=== PATIENT | female | born 1955 | race Caucasian/White ===

== ENCOUNTER → 2017-06-22 | Outpatient (CLI) | payer BC ==
[2017-06-22 09:28] LABS: Appearance,Urine Clear (Clear); Bilirubin,Urine Negative (Negative); Blood,Urine Negative (Negative); Color,Urine Light Yellow; Glucose,Urine (UA) Negative (Negative); Ketones,Urine Negative (Negative); Leukocyte Esterase,Urine Negative (Negative); Nitrite,Urine Negative (Negative); PH, Urine 6.5 (5.0-8.0); Protein,Urine Negative (Negative); Specific Gravity,Urine 1.012 (1.001-1.035); Urobilinogen,Urine <2.0 mg/dL (<2.0)
[2017-06-22 09:29] LABS: HCT 41.7 % (34.0-46.0); HGB 14.3 gm/dL (11.4-16.0); MCH 31.2 pg (25.0-35.0); MCHC 34.2 g/dL (31.0-37.0); MCV 91.2 fL (80.0-100.0); Mean Platelet Volume 8.6; Platelet Count 320 k/uL (150-450); RBC 4.57 m/uL (3.80-5.40); RDW 13.1 % (11.5-15.5); WBC 10.4 k/uL (3.8-10.6)
[2017-06-22 10:14] LABS: ALT 23 U/L (9-52); AST 30 U/L (14-36); Albumin 4.6 g/dL (3.5-5.0); Alkaline Phosphatase 76 U/L (38-126); Anion Gap 9 mmol/L; Blood Urea Nitrogen 13 mg/dL (7-17); Calcium 9.8 mg/dL (8.4-10.2); Carbon Dioxide 27 mmol/L (22-30); Chloride 108 mmol/L (98-107); Cholesterol 234 mg/dL (<200); Glucose 92 mg/dL (74-99); HDL Cholesterol 43 mg/dL (40-60); LDL Cholesterol,Calculated 152 mg/dL (0-99); Potassium 4.6 mmol/L (3.5-5.1); Sodium 144 mmol/L (137-145); Total Bilirubin 1.3 mg/dL (0.2-1.3); Total Protein 7.7 g/dL (6.3-8.2); Triglycerides 193 mg/dL (<150)
== END | disposition home or self-care (01) ==
LOC: LABWHC1 08:50
PROVIDERS: ATTEND Family Medicine
DX: Z00.00 Encounter for general adult medical examination without abnormal findings (principal); Z13.9 Encounter for screening, unspecified
CPT/HCPCS: 36415; 80053; 80061; 81003; 85027; 86803

== ENCOUNTER 2020-05-07 12:54 | Emergency (ER) | payer BC, OTHER ==
[2020-05-07] MEDS ORDERED: SODIUM CHLORIDE 0.9% 1,000 ML IV STA (13:17)
[2020-05-07] MEDS ORDERED: SODIUM CHLORIDE 0.9% 500 ML 500 ML IV STA (13:17)
--- NOTE | 2020-05-07 13:35 | ED ---
Abdominal Pain HPI - General Chief Complaint: Abdominal Pain Stated Complaint: Abd Pain Time Seen by Provider: 05/07/20 13:03 Source: patient, RN notes reviewed Mode of arrival: ambulatory Limitations: no limitations - History of Present Illness Initial Comments: This is a 64-year-old female presents emergency Department with chief complaint of upper abdominal pain. Patient states it has been on and off. Patient states she ate some breakfast sausage this morning which made symptoms worse. Patient saw PCP today who sent emergency from for rule out cholecystitis. Patient denies any fevers or chills no nausea vomiting diarrhea constipation she's had a prior appendectomy. Patient states the pain when it was present radiate up to her right shoulder she has no chest pain. - Related Data Home Medications Medication Instructions Recorded Confirmed Albuterol Inhaler [Ventolin Hfa 2 puff INHALATION RT-QID PRN 05/07/20 05/07/20 Inhaler] Previous Rx's Medication Instructions Recorded Omeprazole [PriLOSEC] 40 mg PO DAILY #30 cap 05/07/20 Allergies Allergy/AdvReac Type Severity Reaction Status Date / Time amoxicillin [From Augmentin] Allergy Unknown Verified 05/07/20 13:31 Childhood clavulanic acid Allergy Unknown Verified 05/07/20 13:31 [From Augmentin] Childhood Review of Systems ROS Statement: Those systems with pertinent positive or pertinent negative responses have been documented in the HPI. ROS Other: All systems not noted in ROS Statement are negative. Past Medical History Past Medical History: Asthma History of Any Multi-Drug Resistant Organisms: None Reported Past Surgical History: Appendectomy Past Psychological History: No Psychological Hx Reported Smoking Status: Current every day smoker Past Alcohol Use History: Occasional Past Drug Use History: None Reported General Exam Limitations: no limitations General appearance: alert, in no apparent distress Head exam: Present: atraumatic, normocephalic, normal inspection Eye exam: Present: normal appearance, PERRL, EOMI. Absent: scleral icterus, conjunctival injection, periorbital swelling Respiratory exam: Present: normal lung sounds bilaterally. Absent: respiratory distress, wheezes, rales, rhonchi, stridor Cardiovascular Exam: Present: regular rate, normal rhythm, normal heart sounds. Absent: systolic murmur, diastolic murmur, rubs, gallop, clicks GI/Abdominal exam: Present: soft, tenderness (Mild right upper), normal bowel sounds. Absent: distended, guarding, rebound, rigid Back exam: Absent: CVA tenderness (R), CVA tenderness (L) Neurological exam: Present: alert, oriented X3 Skin exam: Present: warm, dry, intact, normal color. Absent: rash Course Vital Signs 05/07/20 05/07/20 05/07/20 12:55 14:00 15:00 Temperature 97.8 F Pulse Rate 79 89 87 Respiratory 18 20 18 Rate Blood Pressure 154/92 141/70 154/77 O2 Sat by Pulse 98 99 97 Oximetry Medical Decision Making - Medical Decision Making 64 present for abdominal pain WAS UNREMARKABLE CT WAS ORDERED AT THIS TIME WHICH SHOWS THIN OUT AREA OF THE DO WANT NO CONCERN FOR ULCERATION. THERE IS NO EVIDENCE OF FREE AIR. LABWORK REVIEWED AND UNREMARKABLE. PATIENT WAS GIVEN PROTONIX WE DISCHARGED ON OMEPRAZOLE SHE STATES SHE HAS DAILY HEARTBURN. PATIENT WILL FOLLOW-UP WITH SURGERY AND GI FOR EGD AND POSSIBLE HIDA SCAN. - Lab Data Result diagrams: 05/07/20 13:23 05/07/20 13:23 Lab Results 05/07/20 05/07/20 05/07/20 Range/Units 13:23 13:23 13:23 WBC 11.7 H (3.8-10.6) k/uL RBC 4.67 (3.80-5.40) m/uL Hgb 14.0 (11.4-16.0) gm/dL Hct 42.4 (34.0-46.0) % MCV 90.8 (80.0-100.0) fL MCH 29.9 (25.0-35.0) pg MCHC 32.9 (31.0-37.0) g/dL RDW 13.4 (11.5-15.5) % Plt Count 346 (150-450) k/uL MPV 9.5 Neutrophils % 54 % Lymphocytes % 32 % Monocytes % 7 % Eosinophils % 4 % Basophils % 1 % Neutrophils # 6.3 (1.3-7.7) k/uL Lymphocytes # 3.8 (1.0-4.8) k/uL Monocytes # 0.8 (0-1.0) k/uL Eosinophils # 0.5 (0-0.7) k/uL Basophils # 0.1 (0-0.2) k/uL PT 9.9 (9.0-12.0) sec INR 0.9 (<1.2) APTT 27.5 (22.0-30.0) sec Sodium (137-145) mmol/L Potassium (3.5-5.1) mmol/L Chloride (98-107) mmol/L Carbon Dioxide (22-30) mmol/L Anion Gap mmol/L BUN (7-17) mg/dL Creatinine (0.52-1.04) mg/dL Est GFR (CKD-EPI)AfAm (>60 ml/min/1.73 sqM) Est GFR (CKD-EPI)NonAf (>60 ml/min/1.73 sqM) Glucose (74-99) mg/dL Plasma Lactic Acid Santiago (0.7-2.0) mmol/L Calcium (8.4-10.2) mg/dL Total Bilirubin (0.2-1.3) mg/dL AST (14-36) U/L ALT (4-34) U/L Alkaline Phosphatase (38-126) U/L Total Protein (6.3-8.2) g/dL Albumin (3.5-5.0) g/dL Amylase (30-110) U/L Lipase (23-300) U/L Urine Color Light Yellow Urine Appearance Clear (Clear) Urine pH 5.5 (5.0-8.0) Ur Specific [place] 1.007 (1.001-1.035) Urine Protein Negative (Negative) Urine Glucose (UA) Negative (Negative) Urine Ketones Negative (Negative) Urine Blood Negative (Negative) Urine Nitrite Negative (Negative) Urine Bilirubin Negative (Negative) Urine Urobilinogen <2.0 (<2.0) mg/dL Ur Leukocyte Esterase Negative (Negative) 05/07/20 05/07/20 Range/Units 13:23 13:23 WBC (3.8-10.6) k/uL RBC (3.80-5.40) m/uL Hgb (11.4-16.0) gm/dL Hct (34.0-46.0) % MCV (80.0-100.0) fL MCH (25.0-35.0) pg MCHC (31.0-37.0) g/dL RDW (11.5-15.5) % Plt Count (150-450) k/uL MPV Neutrophils % % Lymphocytes % % Monocytes % % Eosinophils % % Basophils % % Neutrophils # (1.3-7.7) k/uL Lymphocytes # (1.0-4.8) k/uL Monocytes # (0-1.0) k/uL Eosinophils # (0-0.7) k/uL Basophils # (0-0.2) k/uL PT (9.0-12.0) sec INR (<1.2) APTT (22.0-30.0) sec Sodium 139 (137-145) mmol/L Potassium 4.0 (3.5-5.1) mmol/L Chloride 102 (98-107) mmol/L Carbon Dioxide 26 (22-30) mmol/L Anion Gap 11 mmol/L BUN 9 (7-17) mg/dL Creatinine 0.53 (0.52-1.04) mg/dL Est GFR (CKD-EPI)AfAm >90 (>60 ml/min/1.73 sqM) Est GFR (CKD-EPI)NonAf >90 (>60 ml/min/1.73 sqM) Glucose 88 (74-99) mg/dL Plasma Lactic Acid Santiago 0.9 (0.7-2.0) mmol/L Calcium 9.9 (8.4-10.2) mg/dL Total Bilirubin 1.2 (0.2-1.3) mg/dL AST 28 (14-36) U/L ALT 15 (4-34) U/L Alkaline Phosphatase 85 (38-126) U/L Total Protein 8.2 (6.3-8.2) g/dL Albumin 4.7 (3.5-5.0) g/dL Amylase 35 (30-110) U/L Lipase 55 (23-300) U/L Urine Color Urine Appearance (Clear) Urine pH (5.0-8.0) Ur Specific [place] (1.001-1.035) Urine Protein (Negative) Urine Glucose (UA) (Negative) Urine Ketones (Negative) Urine Blood (Negative) Urine Nitrite (Negative) Urine Bilirubin (Negative) Urine Urobilinogen (<2.0) mg/dL Ur Leukocyte Esterase (Negative) Disposition Clinical Impression: Abdominal pain, Duodenal ulcer Disposition: HOME SELF-CARE Condition: Stable Instructions (If sedation given, give patient instructions): Peptic Ulcer (ED), Diet for Stomach Ulcers and Gastritis (ED) Additional Instructions: Please return to the Emergency Department if symptoms worsen or any other concerns. Prescriptions: Omeprazole [PriLOSEC] 40 mg PO DAILY #30 cap Is patient prescribed a controlled substance at d/c from ED?: No Referrals: Vinh Webber MD [Primary Care Provider] - 1-2 days Graciela Pandey MD [STAFF PHYSICIAN] - 1-2 days Fletcher Hernandez MD [STAFF PHYSICIAN] - 1-2 days Time of Disposition: 15:29
[2020-05-07 14:06] LABS: Appearance,Urine Clear (Clear); Basophils # (A) 0.1 k/uL (0-0.2); Basophils % (A) 1 %; Bilirubin,Urine Negative (Negative); Blood,Urine Negative (Negative); Color,Urine Light Yellow; Eosinophils # (A) 0.5 k/uL (0-0.7); Eosinophils % (A) 4 %; Glucose,Urine (UA) Negative (Negative); HCT 42.4 % (34.0-46.0); Ketones,Urine Negative (Negative); Leukocyte Esterase,Urine Negative (Negative); Lymphocytes # (A) 3.8 k/uL (1.0-4.8); Lymphocytes % (A) 32 %; MCH 29.9 pg (25.0-35.0); MCHC 32.9 g/dL (31.0-37.0); MCV 90.8 fL (80.0-100.0); Mean Platelet Volume 9.5; Monocytes # (A) 0.8 k/uL (0-1.0); Monocytes % (A) 7 %; Neutrophils # (A) 6.3 k/uL (1.3-7.7); Neutrophils % (A) 54 %; Nitrite,Urine Negative (Negative); PH, Urine 5.5 (5.0-8.0); Platelet Count 346 k/uL (150-450); Protein,Urine Negative (Negative); RBC 4.67 m/uL (3.80-5.40); RDW 13.4 % (11.5-15.5); Specific Gravity,Urine 1.007 (1.001-1.035); Urobilinogen,Urine <2.0 mg/dL (<2.0); WBC 11.7 k/uL (3.8-10.6)
[2020-05-07 14:11] LABS: ALT 15 U/L (4-34); AST 28 U/L (14-36); African American GFR (CKD) >90 (>60 ml/min/1.73 sqM); Albumin 4.7 g/dL (3.5-5.0); Alkaline Phosphatase 85 U/L (38-126); Amylase 35 U/L (30-110); Anion Gap 11 mmol/L; Blood Urea Nitrogen 9 mg/dL (7-17); Calcium 9.9 mg/dL (8.4-10.2); Carbon Dioxide 26 mmol/L (22-30); Chloride 102 mmol/L (98-107); Glucose 88 mg/dL (74-99); Lipase 55 U/L (23-300); Non-African American GFR(CKD) >90 (>60 ml/min/1.73 sqM); Sodium 139 mmol/L (137-145); Total Bilirubin 1.2 mg/dL (0.2-1.3); Total Protein 8.2 g/dL (6.3-8.2)
--- NOTE | 2020-05-07 14:13 | US ---
EXAMINATION TYPE: US gallbladder DATE OF EXAM: 05/07/2020 COMPARISON: NONE CLINICAL HISTORY: pain. Chronic epigastric pain worsening today; ate oatmeal at 0700. EXAM MEASUREMENTS: Liver Length: 15.2 cm Gallbladder Wall: 0.2 cm CBD: 0.4 cm Right Kidney: 11.1 x 5.6 x 5.1 cm Pancreas: hyperechoic Liver: Echotexture somewhat heterogeneous. Gallbladder: wnl Evidence for sonographic Borges's sign: tender here at RUQ CBD: wnl Right Kidney: No hydronephrosis or masses seen and cortical medullary differentiation is maintained Visualized inferior vena cava is normal. IMPRESSION: Possible underlying hepatocellular disease
[2020-05-07 14:14] LABS: INR 0.9 (<1.2); Partial Thromboplastin Time 27.5 sec (22.0-30.0); Prothrombin Time 9.9 sec (9.0-12.0)
[2020-05-07 15:02] VITALS: BP 154/77; PULSE 87; RESP 18
--- NOTE | 2020-05-07 15:15 | CT ---
EXAMINATION TYPE: CT abdomen pelvis w con DATE OF EXAM: 05/07/2020 COMPARISON: Ultrasound 05/07/2020 HISTORY: Right upper quadrant pain CT DLP: 797.1 mGycm Automated exposure control for dose reduction was used. TECHNIQUE: Helical acquisition of images from the lung bases through the pelvis have been completed. CONTRAST: Performed without Oral Contrast and with IV Contrast, patient injected with 100 mL of Isovue 300. FINDINGS: There is eventration of the hemidiaphragms. There is an umbilical hernia containing fat. LUNG BASES: Within the anterior aspect of the right middle lobe there is some probable focal scarring in the subpleural location, axial image #4. AORTA: No significant abnormality is appreciated. LIVER/GB: 1 cm focus of low-attenuation present on axial image 19 anterior margin of the right lobe o f the liver. Gallbladder shows no stone. PANCREAS: No significant abnormality is seen. SPLEEN: No significant abnormality is seen. ADRENALS: No significant abnormality is seen. KIDNEYS: No significant abnormality is seen. REPRODUCTIVE ORGANS: No significant abnormality is seen BOWEL: Within the fourth portion of the duodenum there is a focal area of thinning of the bowel wall anteriorly, axial image #38, coronal image 47 which is indeterminate. No local stranding within the fat to suggest inflammatory change however. Diverticular change noted within the sigmoid colon FREE AIR: No Free Air visible. ASCITES: None visible. PELVIC ADENOPATHY: None visualized. RETROPERITONEAL ADENOPATHY: No Retroperitoneal Adenopathy visible. URINARY BLADDER: No significant abnormality is seen. OSSEOUS STRUCTURES: No degenerative disc changes, facet arthropathy noted in the visualized spine. IMPRESSION: INDETERMINATE DUODENAL WALL THINNED APPEARANCE, ULCER NOT EXCLUDED, CONSIDER ENDOSCOPY. Additional fi ndings above.
[2020-05-07] MEDS ORDERED: PANTOPRAZOLE 40 MG/10 ML VIAL IVP STA (15:26)
[2020-05-07 15:50] VITALS: TEMP 98.3
== END 2020-05-07 15:40 | disposition home or self-care (01) ==
LOC: EC 12:54
DX: K26.9 Duodenal ulcer, unspecified as acute or chronic, without hemorrhage or perforation (principal); J45.909 Unspecified asthma, uncomplicated; F17.200 Nicotine dependence, unspecified, uncomplicated; Z88.1 Allergy status to other antibiotic agents; Z79.51 Long term (current) use of inhaled steroids; Z90.89 Acquired absence of other organs
CPT/HCPCS: 36415; 80053; 82150; 83605; 83690; 85025; 85610; 85730; 81003; 76705; 74177; 99284; 96374; 96361; C9113; Q9967

== ENCOUNTER 2021-03-25 11:47 | Day surgery (SDC) | payer MEDICARE ==
[2021-03-23 11:48] VITALS: BMI 25.0
[~2021-03-25 11:47] MED LIST: LIDOCAINE 1% (10MG/ML) FOR IV START INTRADERMA PRN
[2021-03-25] MEDS: LACTATED RINGERS 1,000 ML IV SCH ×2 (12:28→13:05)
[2021-03-25 12:32] VITALS: TEMP 98.8
[2021-03-25] MEDS ORDERED: LIDOCAINE 1% INJ 10MG/ML (20 ML MDV) ONE (13:12)
[2021-03-25] MEDS ORDERED: PROPOFOL 10 MG/ML 20 ML VIAL IV ONE (13:12)
--- NOTE | 2021-03-25 13:21 | P.PCN ---
Date of Procedure: 03/25/21 Procedure(s) Performed: BRIEF HISTORY: Patient is a 65-year-old, pleasant, white female scheduled for an upper endoscopy as a part of evaluation of epigastric and right upper quadrant abdominal pain for the last 1 year duration.. PROCEDURE PERFORMED: Esophagogastroduodenoscopy with biopsy. PREOPERATIVE DIAGNOSIS: Epigastric and right upper quadrant abdominal pain of 1 year duration. IV sedation per anesthesia. PROCEDURE: After informed consent was obtained, the patient was brought into the endoscopy unit. IV sedation was administered by Anesthesia under continuous monitoring. Initially the Olympus GIF-140 video endoscope was inserted into the mouth. Esophagus intubated without any difficulty. It was gradually advanced into the stomach and duodenum and carefully examined. The bulb and the second part of the duodenum appeared normal. The scope at this time was withdrawn to the stomach, adequately insufflated with air, and upon careful examination, mucosa of the antrum," had mild antral gastritis and biopsies were done from this area. body, cardia and the fundus appeared normal. The scope was then withdrawn into the esophagus. The GE junction was located at 38 cm from the incisors. The esophagus appeared normal. There were no erosions or ulcerations seen and the patient tolerated the procedure well. IMPRESSION: 1. Mild antral gastritis. 2. Normal-appearing esophagus with no evidence of esophagitis or esophageal stricture. RECOMMENDATIONS: The findings of this examination were discussed with the patient as well as a family. She'll follow with the biopsy results. She was advised to continue with omeprazole 20 mg daily and follow antireflux measures..
[2021-03-25 13:31] VITALS: RESP 16
[2021-03-25 13:44] VITALS: BP 142/76; PULSE 88
== END 2021-03-25 14:18 | disposition home or self-care (01) ==
LOC: ORWHC2ENDO 11:47
PROVIDERS: ATTEND Internal Medicine Gastroenterology
DX: K31.9 Disease of stomach and duodenum, unspecified (principal); K29.70 Gastritis, unspecified, without bleeding; F17.210 Nicotine dependence, cigarettes, uncomplicated; K21.9 Gastro-esophageal reflux disease without esophagitis; Z90.49 Acquired absence of other specified parts of digestive tract; Z79.899 Other long term (current) drug therapy; Z88.0 Allergy status to penicillin; Z91.040 Latex allergy status
CPT/HCPCS: 88305; 43239; J2001; J2704

== ENCOUNTER → 2022-09-20 | Outpatient (CLI) | payer MEDICARE ==
--- NOTE | 2022-09-20 11:08 | BD ---
EXAMINATION TYPE: Axial Bone Density DATE OF EXAM: 09/20/2022 CLINICAL HISTORY: 66 years old Female. ICD-10 CODE: M89.9 DISORDER OF BONE Height: 5 ft 3 1/2 in Weight: 145 FRAX RISK QUESTIONS: Alcohol (3 or more units per day): no Family History (Parent hip fracture): no Glucocorticoids (More than 3mos): no (Ex: prednisone, prednisolone, methylprednisolone, dexamethasone, and hydrocortisone). History of Fracture in Adulthood: no Secondary Osteoporosis: 1. Type 1 Diabetes: no 2. Hyperthyroidism: no 3. Menopause before 45: no 4. Malnutrition: no 5. Chronic liver disease: no Rheumatoid Arthritis: no Current Tobacco Use: yes RISK FACTORS HISTORY OF: Surgery to Spine/Hip(right/left)/Wrist (right/left): no Family History of Osteoporosis: no Active: yes Diet low in dairy products/other sources of calcium: no Postmenopausal woman: yes Take estrogen and/or progesterone medications: no Lost more than 2 inches in height since high school: yes Frequent falls: no Poor Health: good Hyperparathyroidism: no Adrenal Insufficiency: no MEDICATIONS: Additional Medications: none Additional History: EXAM MEASUREMENTS: Bone mineral densitometry was performed using the [employer]. Bone mineral density as measured about the Lumbar spine is: ----- L1-L4(G/cm2): 0.814 T Score Values are as follows: ----- L1: -3.3 ----- L2: -3.2 ----- L3: -3.4 ----- L4: -2.6 ----- L1-L4: -3.0 Z Score Values are as follows: ----- L1: -1.7 ----- L2: -1.6 ----- L3: -1.8 ----- L4: -1.0 ----- L1-L4: -1.5 baseline Bone mineral density about the R hip (g/cm2): 0.682 Bone mineral density about the L hip (g/cm2): 0.956 T Score values are as follows: -----R Neck: -2.6 -----L Neck: -2.7 -----R Total: -2.6 -----L Total: -2.5 Z Score values are as follows: -----R Neck: -1.0 -----L Neck: -1.2 -----R Total: -1.4 -----L Total: -1.2 baseline FRAX%s: The graph provided illustrates a 17.4 % chance for a major osteoporotic fx and a 6.9 % chance for the hips probability for fx in 10 years time. IMPRESSION: Osteoporosis (T Score less than -2.5). There is increased fracture risk and therapy is usually indicated based on age. Re-Screen 1-2 years. NOTE: T-SCORE=SD OF THE YOUNG ADULT MEAN.
== END | disposition home or self-care (01) ==
LOC: RADBDWWP 07:13
PROVIDERS: ATTEND Family Medicine
DX: M85.89 Other specified disorders of bone density and structure, multiple sites (principal)
CPT/HCPCS: 77080

== ENCOUNTER → 2024-09-24 | Outpatient (CLI) | payer MEDICARE ==
[2024-09-24 12:29] VITALS: RESP 18; TEMP 97.8
[2024-09-24] MEDS: DENOSUMAB 60 MG/ML 1 ML SYRINGE SQ NR (12:37)
[2024-09-24 12:43] VITALS: BP 149/84; PULSE 84
== END ==
LOC: PROCWHC3 12:13
PROVIDERS: ATTEND Family Medicine
DX: M80.00XG Age-related osteoporosis with current pathological fracture, unspecified site, subsequent encounter for fracture with delayed healing (principal)
CPT/HCPCS: 96372; J0897

== ENCOUNTER → 2024-10-18 | Outpatient (CLI) | payer MEDICARE ==
--- NOTE | 2024-10-18 08:41 | MM ---
Reason for Exam: Screening (asymptomatic). Last mammogram was performed 1 year(s) and 3 month(s) ago. Patient History: Menarche at age 14. First Full-Term at age 16. Postmenopausal. Patient used Hormonal Contraceptives for 20 years. Cyst Aspiration on the Left side. Excisional Biopsy on the Right side. 11/06/1998, Benign Ultrasound-Guided Cyst Aspiration on the left side. Risk Values: Elvira 5 year model risk: 1.3%. NCI Lifetime model risk: 4.3%. Prior Study Comparison: 10/19/2005 Bilateral Screening Mammogram, [facility]. 10/21/2006 Bilateral MG 3D diag mammo w/cad [facility]IO - 2, [facility]. 10/21/2006 Bilateral Screening Mammogram, [facility]. 08/07/2008 Bilateral MG 3D diag mammo wo cad MARCIO, [facility]. 08/07/2008 Bilateral Screening Mammogram, [facility]. 04/26/2022 Bilateral MG 3D screening mammo wo cad, [facility]. 07/15/2023 Bilateral MG 3D screening mammo wo cad, [facility]. Tissue Density: The breasts are heterogeneously dense, which may obscure small masses. Findings: Analyzed By CAD. There is a 9 mm focal asymmetry in the middle depth upper outer aspect right breast that is more prominent from prior studies. Overall Assessment: Incomplete: need additional imaging evaluation, BI-RAD 0 Management: Diagnostic Mammogram of the right breast. Return for additional spot 3-D and 3-D true lateral views right breast. Patient should continue monthly self-breast exams. A clinical breast exam by your physician is recommended on an annual basis. This exam should not preclude additional follow-up of suspicious palpable abnormalities. Note on Elvira scores and lifetime risk: 1. A Elvira score greater than 3% is considered moderate risk. If this is the case, consider specialist referral to assess eligibility for a risk reducing agent. 2. If overall lifetime risk for the development of breast cancer is 20% or higher, the patient may qualify for future screening with alternating mammogram and breast MRI. [facility], , 10/18/2024 8:38 AM. Electronically signed and approved by: Yobany Wilcox M.D.
--- NOTE | 2024-10-18 09:50 | BD ---
EXAMINATION TYPE: Axial Bone Density DATE OF EXAM: 10/18/2024 CLINICAL HISTORY: 68 years old Female. ICD-10 CODE: M48.54XG COLLAPSED VERTEBRA , Additional Histor y: Height: 61 Weight: 144 FRAX RISK QUESTIONS: Glucocorticoids (More than 3mos): yes, for asthma, inhalers and steroids (Ex: prednisone, prednisolone, methylprednisolone, dexamethasone, and hydrocortisone). History of Fracture in Adulthood: yes 3. Menopause before 45: no at age 52 Current Tobacco Use: yes RISK FACTORS HISTORY OF: height loss, thoracic vert. fx , asthma MEDICATIONS: vit d and calcium, steroidal inhalers and meds for asthma Osteoporosis Medications: prolia, since , EXAM MEASUREMENTS: Bone mineral densitometry was performed using the [employer] System. Bone mineral density as measured about the Lumbar spine is: ----- L1-L4(G/cm2): 0.798 T Score Values are as follows: ----- L1: -2.5 ----- L2: -4.1 ----- L3: -3.5 ----- L4: -2.6 ----- L1-L4: -3.2 Z Score Values are as follows: ----- L1: -0.9 ----- L2: -2.5 ----- L3: -1.9 ----- L4: -1.0 ----- L1-L4: -1.5 Bone mineral density has: Decreased -2.0% since study of: 09.20.2022 Bone mineral density about the R hip (g/cm2): 0.675 Bone mineral density about the L hip (g/cm2): 0.669 T Score values are as follows: -----R Neck: -3.0 -----L Neck: -2.9 -----R Total: -2.6 -----L Total: -2.7 Z Score values are as follows: -----R Neck: -1.4 -----L Neck: -1.2 -----R Total: -1.3 -----L Total: -1.3 Bone mineral density has: Decreased -1.9% since study of: 09.20.2022 FRAX%s: The graph provided illustrates a 46.3% chance for a major osteoporotic fx and a 25.2% chance for the hips probability for fx in 10 years time. IMPRESSION: Osteoporosis (T Score less than -2.5) remains present. There is increased fracture risk and therapy is usually indicated based on age. Re-Screen 1-2 years. NOTE: T-SCORE=SD OF THE YOUNG ADULT MEAN. [facility], , 10/18/2024 9:47 AM
== END | disposition home or self-care (01) ==
LOC: RADMAMWWP 07:06
PROVIDERS: ATTEND Family Medicine
DX: Z12.31 Encounter for screening mammogram for malignant neoplasm of breast (principal); M48.54XG Collapsed vertebra, not elsewhere classified, thoracic region, subsequent encounter for fracture with delayed healing; R92.333 Mammographic heterogeneous density, bilateral breasts; M81.0 Age-related osteoporosis without current pathological fracture; M85.89 Other specified disorders of bone density and structure, multiple sites; Z78.0 Asymptomatic menopausal state; Z92.0 Personal history of contraception
CPT/HCPCS: 77063; 77067; 77080

== ENCOUNTER → 2024-10-22 | Outpatient (CLI) | payer MEDICARE ==
--- NOTE | 2024-10-22 08:22 | MM ---
Reason for Exam: Additional evaluation requested from abnormal screening. Last screening mammogram was performed less than 1 month ago. Patient History: Menarche at age 14. First Full-Term at age 16. Postmenopausal. Patient used Hormonal Contraceptives for 20 years. Cyst Aspiration on the Left side. Excisional Biopsy on the Right side. 11/06/1998, Benign Ultrasound-Guided Cyst Aspiration on the left side. Risk Values: Elvira 5 year model risk: 1.3%. NCI Lifetime model risk: 4.3%. Tissue Density: Right: The breasts are heterogeneously dense, which may obscure small masses. Findings: Analyzed By CAD. Nodular asymmetry upper outer right breast 4 cm from nipple measures a centimeter and may reflect an island of breast tissue however ultrasound is recommended. Overall Assessment: Incomplete: need additional imaging evaluation, BI-RAD 0 Management: Diagnostic Breast Ultrasound of the right breast. . Results were given to the patient verbally at the time of exam. Patient should continue monthly self-breast exams. A clinical breast exam by your physician is recommended on an annual basis. This exam should not preclude additional follow-up of suspicious palpable abnormalities. Note on Elvira scores and lifetime risk: 1. A Elvira score greater than 3% is considered moderate risk. If this is the case, consider specialist referral to assess eligibility for a risk reducing agent. 2. If overall lifetime risk for the development of breast cancer is 20% or higher, the patient may qualify for future screening with alternating mammogram and breast MRI. [facility], , 10/22/2024 8:19 AM. Electronically signed and approved by: Gabriele Guillaume M.D. Radiologis
--- NOTE | 2024-10-22 09:36 | USB ---
Reason for Exam: Additional evaluation requested from abnormal screening. Patient History: Menarche at age 14. First Full-Term at age 16. Postmenopausal. Patient used Hormonal Contraceptives for 20 years. Cyst Aspiration on the Left side. Excisional Biopsy on the Right side. 11/06/1998, Benign Ultrasound-Guided Cyst Aspiration on the left side. Risk Values: Elvira 5 year model risk: 1.3%. NCI Lifetime model risk: 4.3%. Technique: Method: Targeted. Prior Study Comparison: 04/26/2022 Bilateral MG 3D screening mammo wo cad, [facility]. 07/15/2023 Bilateral MG 3D screening mammo wo cad, [facility]. 10/18/2024 Bilateral MG 3D screening mammo w/cad, [facility]. Findings: The upper outer quadrant of the right breast, the axilla of the right breast and the retroareolar of the right breast were scanned. No solid or cystic masses are identified.. Overall Assessment: Probably benign, BI-RAD 3 Management: Diagnostic Mammogram of the right breast in 6 months. A clinical breast exam by your physician is recommended on an annual basis and results should be correlated with mammographic findings. This exam should not preclude additional follow-up of suspicious palpable abnormalities. Results were given to the patient verbally at the time of exam. [facility], , 10/22/2024 8:42 AM. Electronically signed and approved by: Gabriele Guillaume M.D. Radiologis
== END | disposition home or self-care (01) ==
LOC: RADMAMWWP 07:51
PROVIDERS: ATTEND Family Medicine
DX: R92.8 Other abnormal and inconclusive findings on diagnostic imaging of breast (principal); R92.331 Mammographic heterogeneous density, right breast; Z78.0 Asymptomatic menopausal state; Z92.0 Personal history of contraception
CPT/HCPCS: 77065; 76642; G0279; 77061